=== PATIENT | male | born 1950 | race Caucasian/White ===

== ENCOUNTER 2018-09-22 23:11 | Inpatient (IN) | payer MEDICAID, OTHER ==
[2018-09-22] MEDS ORDERED: NITROGLYCERIN 50 MG/D5W (PMX) 250 ML (23:15)
[2018-09-22] MEDS ORDERED: ETOMIDATE 20 MG INJ (23:30)
[2018-09-23] MEDS: AMIODARONE DRIP IV
[2018-09-23] MEDS ORDERED: INSULIN HUMAN REGULAR 100 UNIT in SOD CHLORIDE 0.9% 99 ML IV
[2018-09-23] MEDS ORDERED: DEXTROSE 50% 50 ML SYRINGE IV ×2
[2018-09-23] MEDS: EPINEPHRINE 4 MG in NS 250 ML IV (00:11)
[2018-09-23] MEDS: FUROSEMIDE 40 MG INJ IV (00:17)
[2018-09-23] MEDS: SODIUM CHLORIDE 0.9% 500 ML BAG IV* (00:22)
[2018-09-23 00:40] LABS: ABNORMAL IP MESSAGE 1; HEMOGLOBIN 18.1 g/dl (14.0-18.0); MEAN CORPUSCULAR HEMOGLOBIN 28.8 pg (29.0-33.0); MEAN CORPUSCULAR HGB CONC 30.2 g/dl (32.0-37.0); MEAN CORPUSCULAR VOLUME 95.5 fl (82.0-101.0); MEAN PLATELET VOLUME 13.8 fl (7.4-10.4); PLATELET COUNT 172 10^3/UL (140-415); POSITIVE DIFF @See below; RED BLOOD COUNT 6.28 10^6/ul (4.70-6.10); RED CELL DISTRIBUTION WIDTH 14.9 % (11.5-14.5)
[2018-09-23 00:40] LABS: WHITE BLOOD COUNT 14.1 10^3/ul (4.8-10.8)
[2018-09-23 00:48] LABS: ADD MAN DIFF? YES
[2018-09-23 00:58] LABS: INR 0.89; PROTIME 12.1 Sec (11.9-14.9); PT RATIO 0.9
[2018-09-23 00:59] LABS: PARTIAL THROMBOPLASTIN TIME 25.5 Sec (23.0-35.0)
[2018-09-23] MEDS: ACCU-CHEK XX ×5 (01:00→04:00)
[2018-09-23 01:02] LABS: LACTIC ACID 6.8 mmol/L (0.5-2.0)
[2018-09-23 01:16] LABS: ACETAMINOPHEN < 10.0 ug/ml (10.0-30.0); AMMONIA 60 umol/l (9-30)
[2018-09-23 01:16] LABS: ETHANOL < 10.0 mg/dl (0-0); SALICYLATE < 1.0 mg/dl (5.0-30.0)
[2018-09-23] MEDS: FENTAnyl (DRIP) 1000 mcg/100mL 100 ML IV (01:19)
[2018-09-23] MEDS: CEFEPIME 2GM/50 ML (PMX) 50 ML IVPB (01:20)
[2018-09-23] MEDS: FENTAnyl 50 MCG/ML VIAL IV (01:21)
[2018-09-23] MEDS: PROPOFOL 100 ML IV (01:29)
[2018-09-23 01:41] LABS: UR CLARITY CLEAR (CLEAR); UR COLOR LT. YELLOW (YELLOW)
[2018-09-23 01:42] LABS: UR BILIRUBIN (Dip) NEGATIVE (NEGATIVE); UR BLOOD (Dip) 2+ mg/dL (NEGATIVE); UR GLUCOSE (Dip) 2+ mg/dL (NEGATIVE); UR KETONES (Dip) NEGATIVE (NEGATIVE); UR TOTAL PROTEIN (Dip) 1+ mg/dl (NEGATIVE)
[2018-09-23 01:43] LABS: ADD UMIC YES; UR ASCORBIC ACID NEGATIVE (NEGATIVE); UR LEUKOCYTE ESTERASE (Dip) NEGATIVE Leu/ul (NEGATIVE); UR NITRITE (Dip) NEGATIVE (NEGATIVE); UR UROBILINOGEN (Dip) NEGATIVE (NEGATIVE)
[2018-09-23 01:45] LABS: FREE THYROXINE INDEX (Calc) 3.28 ug/ml (0.65-3.89); T3 UPTAKE 30.9 % (23.5-40.5); T4 (THYROXINE) 10.6 ug/dl (5.5-11.0)
[2018-09-23] MEDS: VANCOMYCIN 1 GM (PMX) 250 ML IVPB (01:50)
[2018-09-23 01:51] LABS: UR SQUAMOUS EPITHELIAL CELL FEW /HPF (FEW); URINE RBCS >50 /HPF (0)
[2018-09-23 01:52] LABS: UR MUCUS FEW /HPF (NONE SEEN)
[2018-09-23 01:53] LABS: ACANTHOCYTES 1+ (0-0); ANISOCYTOSIS 1+ (0-0); BASOPHIL #M 0.1 10^3/ul (0.0-0.0); BASOPHILS % (M) 1 % (0-2); BURR CELLS 1+ (0-0); GIANT THROMBO% (M) 2 % (0-0); LYMPHOCYTES #M 5.4 10^3/ul (0.8-2.9); LYMPHOCYTES % (M) 39 % (15-51); METAMYELOCYTES #M 0.1 10^3/ul (0.0-0.0); METAMYELOCYTES %M 1 % (0-0); MICROCYTOSIS 1+ (0-0); MONOCYTE #M 0.8 10^3/ul (0.3-0.9); MONOCYTES % (M) 6 % (0-11); MYELOCYTES #M 0.4 10^3/ul (0.0-0.0); MYELOCYTES % (M) 3 % (0-0); PLATELET ESTIMATE NORMAL; POIKILOCYTOSIS 1+ (0-0); REACTIVE LYMPHOCYTES #M 1.6 10^3/ul (0.0-0.0); REACTIVE LYMPHOCYTES% (M) 12 % (0-0); SEGMENTED NEUTROPHILS (M) % 38 % (39-77); SMUDGE%M 8 % (0-0)
[2018-09-23] MEDS ORDERED: PROPOFOL 100 ML IV (02:00)
[2018-09-23] MEDS ORDERED: ACETAMINOPHEN 650 MG SUPP PR (02:00)
[2018-09-23] MEDS ORDERED: IPRATROPIUM (HFA) 12.9 GM INHALER INH (02:00)
[2018-09-23] MEDS ORDERED: ONDANSETRON 4 MG INJ IV (02:00)
[2018-09-23] MEDS ORDERED: ALBUTEROL HFA 8 GM INHALER INH (02:00)
[2018-09-23 02:11] LABS: ALANINE AMINOTRANSFERASE 11 IU/L (13-69); ALBUMIN/GLOBULIN RATIO 1.21; ALKALINE PHOSPHATASE 120 IU/L (42-121); ANION GAP 20 (5-13); ASPARTATE AMINO TRANSFERASE 29 IU/L (15-46); BILIRUBIN,INDIRECT 0.5 mg/dl (0-1.1); BILIRUBIN,TOTAL 0.5 mg/dl (0.2-1.3); BLOOD UREA NITROGEN 23 mg/dl (7-20); CALCIUM 10.4 mg/dl (8.4-10.2); CARBON DIOXIDE 22 mmol/L (21-31); CHLORIDE 112 mmol/L (97-110); CREATININE 1.45 mg/dl (0.61-1.24); Estimated GFR 50 mL/min (>60); GLUCOSE 117 mg/dl (70-220); MAGNESIUM 2.4 mg/dl (1.7-2.5); PHOSPHORUS 6.8 mg/dl (2.5-4.9); SODIUM 154 mmol/L (135-144); TOTAL PROTEIN 9.1 g/dl (6.1-8.1)
[2018-09-23 02:13] LABS: AMPHETAMINE/METHAMPHETAMINE Negative (NEGATIVE); BARBITURATES Negative (NEGATIVE); BENZODIAZEPINES Negative (NEGATIVE); CANNABINOIDS Negative (NEGATIVE); COCAINE Negative (NEGATIVE); OPIATES Negative (NEGATIVE)
[2018-09-23 02:22] LABS: TROPONIN-I 0.049 ng/ml (0.000-0.120)
[2018-09-23 02:28] LABS: POTASSIUM 4.4 mmol/L (3.5-5.1)
[2018-09-23 02:49] LABS: AADO2 Arterial 524.4 mmHg (7.0-24.0); Allen Test ACCEPTAB; Arterial Base Excess -4.9 mmol/L (-3.0-3); Arterial Blood Gas Oxygen Sat 98.2 mmHG (95.0-98.0); Arterial COHb 2.1 % (0.0-3.0); Arterial Fraction of Oxyhgb 95.7 % (93.0-99.0); Arterial HCO3 23.6 mmol/L (22.0-26.0); Arterial MetHb 0.4 % (0.0-1.5); MODE VENT - AC; Site Left Radial
[2018-09-23 02:51] LABS: AADO2 Arterial 215.4 mmHg (7.0-24.0); Allen Test ACCEPTAB; Arterial Base Excess -3.4 mmol/L (-3.0-3); Arterial Blood Gas Oxygen Sat 94.5 mmHG (95.0-98.0); Arterial COHb 2.1 % (0.0-3.0); Arterial Fraction of Oxyhgb 92.2 % (93.0-99.0); Arterial HCO3 24.7 mmol/L (22.0-26.0); Arterial MetHb 0.3 % (0.0-1.5); Arterial pCO2 55.9 mmhg (35-45); MODE VENT - AC; Site Left Radial
[2018-09-23] MEDS: NORepinephrine 8MG/250 ML (PMX 250 ML IV (04:19)
[2018-09-23 05:21] LABS: ADD MAN DIFF? NO
[2018-09-23 05:28] LABS: BASOPHIL # 0.1 10^3/ul (0.0-0.1); BASOPHILS % 0.4 % (0.0-2.0); EOSINOPHILS % 0.3 % (0.0-7.0); HEMATOCRIT 50.2 % (42.0-52.0); HEMOGLOBIN 15.9 g/dl (14.0-18.0); LYMPHOCYTES # 2.2 10^3/ul (0.8-2.9); MEAN CORPUSCULAR HEMOGLOBIN 28.9 pg (29.0-33.0); MEAN CORPUSCULAR HGB CONC 31.7 g/dl (32.0-37.0); MEAN CORPUSCULAR VOLUME 91.3 fl (82.0-101.0); MEAN PLATELET VOLUME 12.8 fl (7.4-10.4); MONOCYTE # 1.1 10^3/ul (0.3-0.9); MONOCYTES % 8.2 % (0.0-11.0); NEUTROPHIL # 9.4 10^3/ul (1.6-7.5); NEUTROPHILS % 73.1 % (39.0-77.0); PLATELET COUNT 169 10^3/UL (140-415); RED CELL DISTRIBUTION WIDTH 14.9 % (11.5-14.5)
[2018-09-23 05:28] LABS: WHITE BLOOD COUNT 12.9 10^3/ul (4.8-10.8)
[2018-09-23 05:43] LABS: LACTIC ACID 1.9 mmol/L (0.5-2.0)
[2018-09-23] MEDS: PANTOPRAZOLE 40 MG INJ IV (05:52)
[2018-09-23 05:59] LABS: ANION GAP 8 (5-13); BLOOD UREA NITROGEN 24 mg/dl (7-20); CALCIUM 9.3 mg/dl (8.4-10.2); CARBON DIOXIDE 25 mmol/L (21-31); CHLORIDE 111 mmol/L (97-110); CREATININE 1.49 mg/dl (0.61-1.24); Estimated GFR 48 mL/min (>60); GLUCOSE 132 mg/dl (70-220); MAGNESIUM 3.1 mg/dl (1.7-2.5); POTASSIUM 4.4 mmol/L (3.5-5.1); SODIUM 144 mmol/L (135-144)
[2018-09-23] MEDS ORDERED: VANCOMYCIN IV PER PHARMACY XX (07:00)
[2018-09-23] MEDS ORDERED: FUROSEMIDE 20 MG TAB PO (07:00)
[2018-09-23] MEDS ORDERED: VANCOMYCIN HCL 1.25 GM in SOD CHLORIDE 0.9% 250 ML IVPB (09:00)
[2018-09-23] MEDS: FUROSEMIDE 20 MG INJ IV ×2 (09:04→17:33)
[2018-09-23] MEDS: VANCOMYCIN 500 MG (PMX) 100 ML IVPB (09:15)
[2018-09-23 10:56] LABS: AADO2 Arterial 241.9 mmHg (7.0-24.0); Allen Test ACCEPTAB; Arterial Base Excess 0.3 mmol/L (-3.0-3); Arterial Blood Gas Oxygen Sat 95.4 mmHG (95.0-98.0); Arterial Fraction of Oxyhgb 94.1 % (93.0-99.0); Arterial HCO3 24.4 mmol/L (22.0-26.0); Arterial MetHb 0.4 % (0.0-1.5); Blood Gas PS 10; CREATINE KINASE 152 IU/L (23-200); MODE VENT - CPAP; Site Left Radial
[2018-09-23] MEDS: SOD CHLORIDE 0.9% 1,000 ML IV (11:05)
[2018-09-23 11:10] LABS: CK INDEX 4.2
[2018-09-23 11:13] LABS: CK-MB 6.44 ng/ml (0.0-2.4)
[2018-09-23] MEDS: CEFEPIME 1GM/50 ML (PMX) 50 ML IVPB (11:33)
[2018-09-23 15:45] LABS: CREATINE KINASE 205 IU/L (23-200)
[2018-09-23 15:55] LABS: CK INDEX 3.3
[2018-09-23 15:56] LABS: CK-MB 6.85 ng/ml (0.0-2.4)
[2018-09-23 16:02] LABS: TROPONIN-I 0.609 ng/ml (0.000-0.120)
[2018-09-23] MEDS: ASPIRIN (EC) 81 MG TAB PO (17:33)
[2018-09-23] MEDS: LACTULOSE 30ML CUP PO (20:32)
[2018-09-24] MEDS: CEFEPIME 1GM/50 ML (PMX) 50 ML IVPB ×3 (00:16→23:54)
[2018-09-24] MEDS: SOD CHLORIDE 0.9% 1,000 ML IV (00:19)
[2018-09-24] MEDS: FUROSEMIDE 20 MG INJ IV ×2 (05:01→17:57)
[2018-09-24] MEDS: PANTOPRAZOLE 40 MG INJ IV (05:01)
[2018-09-24 05:28] LABS: ADD MAN DIFF? NO
[2018-09-24 05:33] LABS: BASOPHIL # 0.1 10^3/ul (0.0-0.1); BASOPHILS % 0.5 % (0.0-2.0); EOSINOPHILS # 0.1 10^3/ul (0.0-0.5); EOSINOPHILS % 1.3 % (0.0-7.0); HEMATOCRIT 44.7 % (42.0-52.0); HEMOGLOBIN 14.4 g/dl (14.0-18.0); LYMPHOCYTES % 19.9 % (15.0-51.0); MEAN CORPUSCULAR HGB CONC 32.2 g/dl (32.0-37.0); MEAN CORPUSCULAR VOLUME 90.1 fl (82.0-101.0); MEAN PLATELET VOLUME 12.8 fl (7.4-10.4); MONOCYTE # 0.5 10^3/ul (0.3-0.9); MONOCYTES % 5.4 % (0.0-11.0); NEUTROPHIL # 7.1 10^3/ul (1.6-7.5); NEUTROPHILS % 72.6 % (39.0-77.0); PLATELET COUNT 103 10^3/UL (140-415); RED BLOOD COUNT 4.96 10^6/ul (4.70-6.10); RED CELL DISTRIBUTION WIDTH 14.9 % (11.5-14.5)
[2018-09-24 05:33] LABS: WHITE BLOOD COUNT 9.8 10^3/ul (4.8-10.8)
[2018-09-24 06:02] LABS: AMMONIA < 9 umol/l (9-30)
[2018-09-24 06:02] LABS: CREATINE KINASE 154 IU/L (23-200)
[2018-09-24 06:04] LABS: ANION GAP 8 (5-13); BLOOD UREA NITROGEN 27 mg/dl (7-20); CALCIUM 8.6 mg/dl (8.4-10.2); CARBON DIOXIDE 26 mmol/L (21-31); CHLORIDE 108 mmol/L (97-110); CREATININE 1.14 mg/dl (0.61-1.24); Estimated GFR > 60 mL/min (>60); GLUCOSE 105 mg/dl (70-220); POTASSIUM 3.5 mmol/L (3.5-5.1); SODIUM 142 mmol/L (135-144)
[2018-09-24 06:12] LABS: B-TYPE NATRIURETIC PEPTIDE 11500 PG/ML (0-125)
[2018-09-24 06:15] LABS: CK INDEX 1.6
[2018-09-24 06:19] LABS: PHOSPHORUS 2.4 mg/dl (2.5-4.9)
[2018-09-24 06:20] LABS: CHOL/HDL RATIO 6.1 RATIO; HDL CHOLESTEROL 27 mg/dl (30-78); LDL CHOLESTEROL,CALCULATED 104 mg/dl; TRIGLYCERIDES 168 mg/dl (0-149)
[2018-09-24 06:20] LABS: CHOLESTEROL 165 mg/dl (100-200)
[2018-09-24 06:21] LABS: MAGNESIUM 2.1 mg/dl (1.7-2.5)
[2018-09-24 06:23] LABS: CK-MB 2.45 ng/ml (0.0-2.4); TROPONIN-I 0.281 ng/ml (0.000-0.120)
[2018-09-24 06:33] LABS: THYROID STIMULATING HORMONE 0.226 MIU/L (0.465-4.680)
[2018-09-24] MEDS: VANCOMYCIN HCL 1.25 GM in SOD CHLORIDE 0.9% 250 ML IVPB (09:03)
[2018-09-24] MEDS: LACTULOSE 30ML CUP PO (09:03)
[2018-09-24] MEDS: ASPIRIN (EC) 81 MG TAB PO (09:03)
[2018-09-24] MEDS: LISINOPRIL 5 MG TAB PO (09:05)
[2018-09-24] MEDS: ACETAMINOPHEN 325 MG TAB PO (16:33)
[2018-09-24] MEDS: SPIRONOLACTONE 25 MG TAB PO (17:57)
[2018-09-24] MEDS: POTASSIUM PHOSPHATE 15 MM in SOD CHLORIDE 0.9% 250 ML IVPB (18:32)
[2018-09-24] MEDS: ATORVASTATIN 20 MG TAB PO (20:10)
[2018-09-24] MEDS: LISINOPRIL 20 MG TAB PO (20:11)
[2018-09-24] MEDS: HYDROCODONE/APAP (5/325) TAB PO (20:17)
[2018-09-24] MEDS ORDERED: LISINOPRIL 5 MG TAB PO (21:00)
[2018-09-25] MEDS ORDERED: VANCOMYCIN 750 MG (PMX) 250 ML IVPB
[2018-09-25] MEDS: FUROSEMIDE 20 MG INJ IV ×2 (05:04→17:36)
[2018-09-25] MEDS: HYDROCODONE/APAP (5/325) TAB PO ×2 (05:16→14:20)
[2018-09-25 05:47] LABS: ADD MAN DIFF? NO
[2018-09-25 05:53] LABS: ABNORMAL IP MESSAGE 1; BASOPHILS % 0.4 % (0.0-2.0); EOSINOPHILS # 0.3 10^3/ul (0.0-0.5); EOSINOPHILS % 2.7 % (0.0-7.0); HEMATOCRIT 45.1 % (42.0-52.0); HEMOGLOBIN 14.7 g/dl (14.0-18.0); MEAN CORPUSCULAR HEMOGLOBIN 29.5 pg (29.0-33.0); MEAN CORPUSCULAR HGB CONC 32.6 g/dl (32.0-37.0); MEAN CORPUSCULAR VOLUME 90.4 fl (82.0-101.0); MEAN PLATELET VOLUME 12.5 fl (7.4-10.4); MONOCYTE # 0.7 10^3/ul (0.3-0.9); MONOCYTES % 7.2 % (0.0-11.0); NEUTROPHIL # 6.3 10^3/ul (1.6-7.5); NEUTROPHILS % 67.4 % (39.0-77.0); PLATELET COUNT 98 10^3/UL (140-415); POSITIVE DIFF @See below; RED BLOOD COUNT 4.99 10^6/ul (4.70-6.10); RED CELL DISTRIBUTION WIDTH 14.8 % (11.5-14.5)
[2018-09-25 05:53] LABS: WHITE BLOOD COUNT 9.3 10^3/ul (4.8-10.8)
[2018-09-25 06:09] LABS: ANION GAP 8 (5-13); BLOOD UREA NITROGEN 26 mg/dl (7-20); CALCIUM 8.8 mg/dl (8.4-10.2); CARBON DIOXIDE 31 mmol/L (21-31); CHLORIDE 103 mmol/L (97-110); CREATININE 1.16 mg/dl (0.61-1.24); Estimated GFR > 60 mL/min (>60); GLUCOSE 97 mg/dl (70-220); SODIUM 142 mmol/L (135-144)
[2018-09-25 06:14] LABS: ALANINE AMINOTRANSFERASE 20 IU/L (13-69); ALBUMIN 3.7 g/dl (3.3-4.9); ALKALINE PHOSPHATASE 84 IU/L (42-121); ASPARTATE AMINO TRANSFERASE 23 IU/L (15-46); BILIRUBIN,INDIRECT 1.3 mg/dl (0-1.1); BILIRUBIN,TOTAL 1.3 mg/dl (0.2-1.3); TOTAL PROTEIN 6.9 g/dl (6.1-8.1)
[2018-09-25 06:15] LABS: CHOL/HDL RATIO 6.6 RATIO; CHOLESTEROL 173 mg/dl (100-200); HDL CHOLESTEROL 26 mg/dl (30-78); LDL CHOLESTEROL,CALCULATED 110 mg/dl; TRIGLYCERIDES 183 mg/dl (0-149)
[2018-09-25 06:15] LABS: MAGNESIUM 1.8 mg/dl (1.7-2.5); PHOSPHORUS 2.7 mg/dl (2.5-4.9)
[2018-09-25 06:18] LABS: B-TYPE NATRIURETIC PEPTIDE 8890 PG/ML (0-125)
[2018-09-25 06:44] LABS: HEPATITIS B SURFACE ANTIGEN NEGATIVE (NEGATIVE)
[2018-09-25 07:01] LABS: HEPATITIS C VIRAL ANTIBODY NEGATIVE (NEGATIVE)
[2018-09-25 07:01] LABS: HEPATITIS B SURFACE ANTIBODY NEGATIVE (NEGATIVE)
[2018-09-25] MEDS: SPIRONOLACTONE 25 MG TAB PO (08:44)
[2018-09-25] MEDS: ASPIRIN (EC) 81 MG TAB PO (08:44)
[2018-09-25] MEDS: FAMOTIDINE 20 MG TAB PO (08:44)
[2018-09-25] MEDS: LISINOPRIL 20 MG TAB PO (08:45)
[2018-09-25] MEDS ORDERED: ENOXAPARIN 40 MG/0.4 ML SYG SC (09:00)
[2018-09-25] MEDS: CEFEPIME 1GM/50 ML (PMX) 50 ML IVPB (11:49)
[2018-09-25] MEDS ORDERED: MAGNESIUM SULFATE 1 GM/100 ML D5W IVPB (17:00)
[2018-09-25] MEDS ORDERED: EPINEPHrine 0.1 MG/ML SYG (17:00)
[2018-09-25] MEDS ORDERED: DEXTROSE 50% 50 ML SYRINGE (17:00)
[2018-09-25] MEDS ORDERED: NA BICARBONATE 8.4% 50 ML SYG (17:00)
[2018-09-25] MEDS ORDERED: CA CHLORIDE 10% 10 ML SYRINGE (17:00)
[2018-09-25] MEDS ORDERED: AMIODARONE 150 MG INJ (17:00)
== END 2018-09-25 18:40 | disposition home or self-care (01) | DRG 871 ==
LOC: 6WM 09-24 00:06 → E/R 23:11 → ICU 09-23 04:05
PROVIDERS: Internal Medicine
PROC: 5A1935Z Respiratory Ventilation, Less than 24 Consecutive Hours (ICD-10-PCS; principal; 2018-09-23)
PROC: 0BH17EZ Insertion of Endotracheal Airway into Trachea, Via Natural or Artificial Opening (ICD-10-PCS; 2018-09-23)
PROC: 5A12012 Performance of Cardiac Output, Single, Manual (ICD-10-PCS; 2018-09-23)
DX: A41.9 Sepsis, unspecified organism (principal); J96.01 Acute respiratory failure with hypoxia; I46.9 Cardiac arrest, cause unspecified; J69.0 Pneumonitis due to inhalation of food and vomit; I50.23 Acute on chronic systolic (congestive) heart failure; Z99.11 Dependence on respirator [ventilator] status; E72.20 Disorder of urea cycle metabolism, unspecified; E87.0 Hyperosmolality and hypernatremia; N17.9 Acute kidney failure, unspecified; I47.2 Ventricular tachycardia; I42.9 Cardiomyopathy, unspecified; K72.90 Hepatic failure, unspecified without coma; I11.0 Hypertensive heart disease with heart failure; K80.20 Calculus of gallbladder without cholecystitis without obstruction; E78.5 Hyperlipidemia, unspecified; R07.9 Chest pain, unspecified; F17.200 Nicotine dependence, unspecified, uncomplicated; Z79.82 Long term (current) use of aspirin; Z59.0 Homelessness; Z86.73 Personal history of transient ischemic attack (TIA), and cerebral infarction without residual deficits
CPT/HCPCS: 31500; 36415; 36600; 70450; 71045; 71250; 76705; 76937; 80048; 80053; 80061; 80076; 80307; 81001; 82140; 82550; 82553; 82803; 82962; 83605; 83735; 83880; 84100; 84436; 84443; 84479; 84484; 85025; 85610; 85730; 86706; 86803; 87040-91; 87081; 87340; 92950; 93005; 93306; 94002; 94003; 96365; 96368; 96375; 99291-25